=== PATIENT | female | born 1985 | race Hispanic/Latino ===

== ENCOUNTER 2022-12-01 18:33 | Emergency (ER) | payer SELFPAY ==
[~2022-12-01] VITALS: Ht 149.9 cm; Wt 59.0 kg
[2022-12-01 19:00] VITALS: O2SAT 99
[2022-12-01] MEDS ORDERED: KETOROLAC TROMETHAMINE 30 MG/ML VIAL ONE (19:13)
[2022-12-01] MEDS ORDERED: SODIUM CHLORIDE 0.9% 1000ML 1,000 ML ONE (19:13)
[2022-12-01] MEDS ORDERED: KETOROLAC TROMETHAMINE 60 MG/2 ML VIAL IM ONE (19:15)
[2022-12-01] MEDS ORDERED: KETOROLAC TROMETHAMINE 30 MG/ML VIAL IV STA (19:16)
[2022-12-01] MEDS ORDERED: SODIUM CHLORIDE 0.9% 1000ML 1,000 ML IV ONE (19:30)
[2022-12-01] MEDS ORDERED: FIORICET 50-301 EACH PO (19:56)
== END 2022-12-01 20:45 | disposition home or self-care (01) ==
LOC: FSED 18:37
DX: R51.9 Headache, unspecified (principal)
CPT/HCPCS: 99283; J1885; J7030